=== PATIENT | male | born 1960 | race Caucasian/White ===

== ENCOUNTER 2016-07-29 07:45 | Outpatient (CLI) | payer OTHER | END 2016-07-29 07:46 | disposition home or self-care (01) | DX: Z00.00 Encounter for general adult medical examination without abnormal findings (principal); N40.0 Benign prostatic hyperplasia without lower urinary tract symptoms; F52.21 Male erectile disorder ==

== ENCOUNTER 2016-08-14 09:55 | Outpatient (CLI) | payer OTHER | END 2016-08-14 09:56 | disposition home or self-care (01) | DX: E87.6 Hypokalemia (principal) ==

== ENCOUNTER 2016-09-08 07:49 | Day surgery (SDC) | payer OTHER ==
[2016-09-08] MEDS ORDERED: LACTATED RINGERS 1,000 ML IV ONE (08:12)
[2016-09-08] MEDS ORDERED: fentaNYL 250 MCG/5 ML VIAL IVP ONE (09:32)
[2016-09-08] MEDS ORDERED: MIDAZOLAM 2 MG/2 ML VIAL IVP ONE (09:32)
== END 2016-09-08 07:50 | disposition home or self-care (01) ==
PROC: 0DJD8ZZ Inspection of Lower Intestinal Tract, Via Natural or Artificial Opening Endoscopic (ICD-10-PCS; principal; 2016-09-08 09:15)
DX: Z12.11 Encounter for screening for malignant neoplasm of colon (principal); K64.8 Other hemorrhoids; I10 Essential (primary) hypertension; Z82.49 Family history of ischemic heart disease and other diseases of the circulatory system
CPT/HCPCS: 45378; J3010; J7120

== ENCOUNTER 2017-06-02 09:52 | Emergency (ER) | payer OTHER ==
[2017-06-02 09:59] VITALS: BP 138/94
== END 2017-06-02 11:55 | disposition left against medical advice (07) ==
LOC: ED 09:52
DX: Z53.21 Procedure and treatment not carried out due to patient leaving prior to being seen by health care provider (principal)
CPT/HCPCS: 99281

== ENCOUNTER 2017-06-25 14:38 | Outpatient (CLI) | payer OTHER ==
--- NOTE | 2017-06-28 16:05 | Ultrasound Report ---
ABIs: 06/25/2017 CLINICAL INDICATION: Hypertension. TECHNIQUE: Real-time sonographic vascular imaging was performed by the judicial registrar through the bilateral lower extremities utilizing both color-flow and Doppler flow analysis. Multiple manufacturers service representative static images were saved for review. RIGHT SIDE SITE PSV WAVEFORM STEN SE -- -- -- MAO -- -- -- MARIE -- -- -- ANDRY -- -- -- EIA -- -- -- IMPREGNATOR HELPER -- -- -- PSFA -- -- -- MSFA -- -- -- DSFA -- -- -- PFA -- -- -- POP -- -- -- ADRY -- -- -- PEOPLESOFT 82 triphasic -- PER -- -- -- DPA 114 triphasic -- LEFT SIDE SITE PSV WAVEFORM STEN ANDRY -- -- -- EIA -- -- -- IMPREGNATOR HELPER -- -- -- PSFA -- -- -- MSFA -- -- -- DSFA -- -- -- PFA -- -- -- POP -- -- -- ADRY -- -- -- PEOPLESOFT 69 triphasic -- PER -- -- -- DPA 105 triphasic -- TECHNIQUE: Real-time scanning was performed. SYSTOLIC PRESSURES RIGHT LEFT BRACHIAL ARTERY 131/77 134/79 POSTERIOR TIBIAL ARTERY 161/81 165/79 ANTERIOR TIBIAL ARTERY -- -- PERONEAL ARTERY -- -- ANKLE/ARM INDEX 1.20 1.23 ABIs are normal, measuring 1.20 on the right and 1.23 on the left. IMPRESSION: NORMAL ABIs. [facility]ITALFranklin
== END 2017-06-25 14:39 | disposition home or self-care (01) ==
LOC: DI 14:38
PROVIDERS: ATTEND Physician Assistant Medical
DX: R03.0 Elevated blood-pressure reading, without diagnosis of hypertension (principal)
CPT/HCPCS: 93922

== ENCOUNTER 2017-08-10 08:14 | Outpatient (CLI) | payer OTHER ==
[2017-08-10 13:09] LABS: CREATININE,URINE 251.6 mg/dL; PROTEIN/CREATININE RATIO,URINE 0.1 (<=0.2)
[2017-08-10 13:26] LABS: HGB - HEMOGLOBIN 14.1 g/dL (14.0-18.0); MEAN CORPUSCULAR HEMOGLOBIN 29.8 pg (27.0-31.0); MEAN CORPUSCULAR HGB CONC 32.9 g/dL (32.0-36.0); MEAN CORPUSCULAR VOLUME 90.6 fL (80.0-94.0); MEAN PLATELET VOLUME 8.1 fL (7.4-11.4); RED BLOOD COUNT 4.72 10^6/uL (4.70-6.10); RED CELL DISTRIBUTION WIDTH 14.2 % (12.0-15.0); WHITE BLOOD COUNT 6.8 x10^3/uL (4.8-10.8)
== END 2017-08-10 08:15 | disposition home or self-care (01) ==
LOC: LAB.WCP 08:14
PROVIDERS: ATTEND Internal Medicine Nephrology
DX: D70.9 Neutropenia, unspecified (principal); R80.9 Proteinuria, unspecified
CPT/HCPCS: 36415; 82570; 84156

== ENCOUNTER 2017-08-25 21:33 | Emergency (ER) | payer OTHER ==
[2017-08-25 21:55] LABS: BASOPHILS # (AUTO) 0.1 10^3/uL (0.0-0.1); EOSINOPHILS # (AUTO) 0.2 10^3/uL (0.0-0.7); EOSINOPHILS % (AUTO) 1.9 %; HGB - HEMOGLOBIN 13.6 g/dL (14.0-18.0); LYMPHOCYTES # (AUTO) 3.2 10^3/uL (1.5-3.5); LYMPHOCYTES % (AUTO) 38.3 %; MEAN CORPUSCULAR HEMOGLOBIN 30.3 pg (27.0-31.0); MEAN CORPUSCULAR HGB CONC 34.3 g/dL (32.0-36.0); MEAN CORPUSCULAR VOLUME 88.4 fL (80.0-94.0); MEAN PLATELET VOLUME 7.7 fL (7.4-11.4); MONOCYTES # (AUTO) 0.6 10^3/uL (0.0-1.0); MONOCYTES % (AUTO) 7.3 %; NEUTROPHILS # (AUTO) 4.3 10^3/uL (1.5-6.6); NEUTROPHILS % (AUTO) 51.5 %; PLT - PLATELET COUNT 232 10^3/uL (130-450); RED BLOOD COUNT 4.48 10^6/uL (4.70-6.10); RED CELL DISTRIBUTION WIDTH 13.8 % (12.0-15.0); WHITE BLOOD COUNT 8.3 x10^3/uL (4.8-10.8)
[2017-08-25 22:05] LABS: ALBUMIN 4.3 g/dL (3.2-5.5); ALBUMIN/GLOBULIN RATIO 1.4 (1.0-2.2); BILIRUBIN,TOTAL 0.4 mg/dL (0.2-1.0); CALCIUM 9.3 mg/dL (8.5-10.3); CREATININE 1.2 mg/dL (0.6-1.2); TOTAL PROTEIN 7.4 g/dL (6.7-8.2)
[2017-08-25] MEDS ORDERED: hydrALAZINE INJ 20 MG/ML VIAL IVP STA (22:15)
--- NOTE | 2017-08-25 23:04 | XRAY Report ---
EXAM: CHEST RADIOGRAPHY EXAM DATE: 08/25/2017 10:51 PM. CLINICAL HISTORY: Chest pain. COMPARISON: 01/17/2016. TECHNIQUE: 2 views. FINDINGS: Lungs/Pleura: There is small streaky left lateral lung base opacity noted. No significant consolidati on, effusion, or definite pneumothorax. Mediastinum: Heart and mediastinal contours are unremarkable. Other: Moderate degenerative change of the shoulder bilaterally. IMPRESSION: Minimal left lateral lung base atelectasis. [facility] Referring Provider Line: [phone] SITE ID: [id number]
[2017-08-25] MEDS ORDERED: hydroCHLOROthiazide 25 MG TABLET PO STA (23:12)
[2017-08-25] MEDS ORDERED: LOSARTAN 50 MG TABLET PO STA (23:12)
--- NOTE | 2017-08-25 23:15 | ED Physician Documentation ---
PD HPI CHEST PAIN - Stated complaint Stated Complaint: CP - Chief complaint Chief Complaint: Cardiac - History obtained from History obtained from: Patient - History of Present Illness Timing - onset: Yesterday Timing - onset during: Light activity Timing - details: Intermittant Quality: Pressure Location: Substernal, Left chest, Right chest Improved by: Rest Associated symptoms: No: Shortness of air, Diaphoresis, Nausea, Vomiting, Feeling faint / dizzy, General Weakness Similar symptoms before: Work up / diagnostics Recently seen: Not recently seen - Additional information Additional information: Patient is a 56 year old male with a history of htn and depression who is presenting to the emergency department for intermittent chest discomfort. Patient states that over the last couple of days he has had intermittent chest pain. Patient states that he does not realize it during the day, but when he comes home at night he will notice it. Patient is under a lot of stress lately. He recently has gone through a divorce and he has a friend in a hospital 2 hours away and has been driving back and forth visiting. Patient states that he is supposed to be on blood pressure medication but he hasn't been taking it recently. Patient reports that within the last year he had a stress test and an echo and they were both ok as far as he knows. Review of Systems Constitutional: denies: Fever, Chills Eyes: reports: Reviewed and negative Ears: reports: Reviewed and negative Nose: reports: Reviewed and negative Throat: reports: Reviewed and negative Cardiac: reports: Chest pain / pressure. denies: Palpitations, Pedal edema, Calf pain Respiratory: denies: Dyspnea, Cough, Hemoptysis, Wheezing GI: denies: Nausea, Vomiting : reports: Reviewed and negative Skin: reports: Reviewed and negative Musculoskeletal: denies: Extremity pain, Extremity swelling Neurologic: denies: Near syncope, Syncope Immunocompromised: denies: Immunocompromised PD PAST MEDICAL HISTORY - Past Medical History Cardiovascular: Hypertension, High cholesterol Respiratory: None Endocrine/Autoimmune: None GI: None : None HEENT: None Psych: None, Other Musculoskeletal: None Derm: None - Past Surgical History Past Surgical History: Yes General: Other - Present Medications Home Medications: Ambulatory Orders Medication Instructions Recorded Confirmed Atorvastatin Calcium [Lipitor] 10 mg PO DAILY 08/08/15 06/02/17 DULoxetine [Cymbalta] 60 mg PO DAILY 01/04/16 06/02/17 Hydrochlorothiazide 12.5 mg PO DAILY 09/08/16 06/02/17 Losartan [Cozaar] 100 mg PO DAILY 09/08/16 06/02/17 - Allergies Allergies/Adverse Reactions: Allergies Allergy/AdvReac Type Severity Reaction Status Date / Time No Known Drug Allergies Allergy Verified 08/25/17 21:40 - Social History Does the pt smoke?: No Smoking Status: Never smoker Does the pt drink ETOH?: Yes Does the pt have substance abuse?: No - Immunizations Immunizations are current?: Yes PD ED PE NORMAL - Vitals Vital signs reviewed: Yes - General General: Alert and oriented X 3, No acute distress - HEENT HEENT: Atraumatic, PERRL - Neck Neck: Supple, no meningeal sign, No JVD - Cardiac Cardiac: RRR, No murmur, No rub - Respiratory Respiratory: No respiratory distress, Clear bilaterally - Abdomen Abdomen: Soft, Non tender, Non distended - Derm Derm: Normal color, Warm and dry, No rash - Extremities Extremities: No deformity, Normal ROM s pain, No calf tenderness / cord - Neuro Neuro: Alert and oriented X 3, No motor deficit, No sensory deficit, Normal speech Eye Opening: Spontaneous Motor: Obeys Commands Verbal: Oriented GCS Score: 15 - Psych Psych: Normal mood Results - Vitals Vitals: Vital Signs - 24 hr 08/25/17 08/25/17 08/25/17 21:35 22:21 22:28 Temperature 36.8 C Heart Rate 93 78 85 Respiratory 16 17 18 Rate Blood Pressure 193/101 H 188/177 H 191/109 H O2 Saturation 96 95 95 08/25/17 08/25/17 08/25/17 22:39 22:44 22:56 Temperature Heart Rate 83 81 78 Respiratory 17 18 16 Rate Blood Pressure 175/106 H 179/106 H 183/97 H O2 Saturation 95 98 95 08/25/17 08/25/17 08/26/17 23:29 23:34 00:12 Temperature Heart Rate 83 80 73 Respiratory 18 16 16 Rate Blood Pressure 175/95 H 187/102 H 183/109 H O2 Saturation 96 95 99 08/26/17 00:23 Temperature Heart Rate Respiratory Rate Blood Pressure 172/97 H O2 Saturation Oxygen O2 Source Room air - EKG (time done) 2141 Rate: Rate (enter#) (88) Rhythm: NSR [place]: Normal Intervals: Normal CT QRS: Normal Ischemia: Normal ST segments - Labs Labs: Laboratory Tests 08/25/17 08/25/17 08/25/17 21:45 21:45 21:45 WBC 8.3 RBC 4.48 L Hgb 13.6 L Hct 39.6 L MCV 88.4 MCH 30.3 MCHC 34.3 RDW 13.8 Plt Count 232 MPV 7.7 Neut # 4.3 Lymph # 3.2 Woods # 0.6 Eos # 0.2 Baso # 0.1 Absolute Nucleated RBC 0.01 Nucleated RBC % 0.1 Sodium 138 Potassium 3.3 L Chloride 101 Carbon Dioxide 25 Anion Gap 12.0 BUN 16 Creatinine 1.2 Estimated GFR (MDRD) 63 L Glucose 97 Calcium 9.3 Total Bilirubin 0.4 AST 27 ALT 30 Alkaline Phosphatase 43 Troponin I 0.06 B-Natriuretic Peptide Total Protein 7.4 Albumin 4.3 Globulin 3.1 Albumin/Globulin Ratio 1.4 Lipase 26 08/25/17 08/25/17 21:45 23:25 WBC RBC Hgb Hct MCV MCH MCHC RDW Plt Count MPV Neut # Lymph # Woods # Eos # Baso # Absolute Nucleated RBC Nucleated RBC % Sodium Potassium Chloride Carbon Dioxide Anion Gap BUN Creatinine Estimated GFR (MDRD) Glucose Calcium Total Bilirubin AST ALT Alkaline Phosphatase Troponin I 0.08 B-Natriuretic Peptide 21 Total Protein Albumin Globulin Albumin/Globulin Ratio Lipase - Rads (name of study) chest x-ray Radiology: Final report received (mild atelectasis left base) PD MEDICAL DECISION MAKING - ED course Complexity details: reviewed old records, reviewed results, re-evaluated patient , considered differential, d/w patient ED course: Patient was seen and examined at bedside. patient was well appearing and in no acute distress. ekg was performed and within normal limits. labs were drawn. chest x-ray was performed and within normal limits. Patient was treated with hydralizine 10mg IV. Patient was also treated with his home medications. patient's diagnostics, including repeat troponin were within normal limits. patient states that he had prescriptions at his pharmacy so no other prescriptions were necessary. patient had a HEART score of 3. Patient required no further inpatient work up and was stable for discharge with outpatient follow up. Departure - Departure Disposition: Home, Self Care Clinical Impression: Chest pain Condition: Good Instructions: ED Heart Disease Risk Factors Follow-Up: Terra Morse PA-C [Primary Care Provider] - Tomorrow Comments: Your diagnostics today were within normal limits aside from your blood pressure which remained elevated. It is important that you are compliant with your medications as the prolonged hypertension can have lasting damage. If your blood pressures remain elevated while you are taking all of your medicaitons you will need to work with your pmd on a medication regiment. You may return to the emergency department at any time for new worsening or uncontrollable sympotms. Discharge Date/Time: 08/26/17 00:25
[2017-08-26 00:24] VITALS: BP 172/97
== END 2017-08-26 00:25 | disposition home or self-care (01) ==
LOC: ED 21:33
DX: R07.9 Chest pain, unspecified (principal); I10 Essential (primary) hypertension; E78.00 Pure hypercholesterolemia, unspecified
CPT/HCPCS: 36415; 71046; 80053; 83690; 83880; 84484; 85025; 93005; 96374; 99284; A9270

== ENCOUNTER 2017-09-09 08:42 | Outpatient (CLI) | payer OTHER ==
[2017-09-09] MEDS ORDERED: NITROGLYCERIN SL 0.4 MG TABLET SL ONE (12:00)
[2017-09-09 18:14] VITALS: BP 176/98
--- NOTE | 2017-09-09 18:26 | CARDIAC PROCEDURE NOTE ---
DATE OF SERVICE: 09/09/2017 Physician: LENORA Malcolm PRIMARY CARE PHYSICIAN: Terra Morse PA-C PROCEDURE: Myocardial perfusion treadmill. PROCEDURE REASON: A 08/25/2017 ER visit for chest pain rule out. Cardiac risk factors include age, family history, hypertension, hyperlipidemia, and impaired fasting glucose. PREVIOUS CARDIAC PROCEDURES: ETT. MEDICATIONS: The patient took losartan and Cardizem this morning but not hydralazine, which is listed as p.r.n. for systolic greater than 160. CLINICAL HISTORY: A 56-year-old male without known coronary artery disease. INITIAL RESTING VITAL SIGNS: Blood pressure 176/98, heart rate 82, height 72 inches, weight 240 pounds. PROCEDURE AND FINDINGS: Patient identity and date verified. Consent signed. The patient performed treadmill exercise using a [place] protocol, completing 9 minutes, 46 seconds and an estimated workload of 10.1 metabolic equivalents. His predicted exercise time was 9:00 minutes to 9 minutes 15 seconds. At peak exercise, Cardiolite radioactive tracer was injected intravenously and the patient exercised at least 60 seconds longer. Maximal blood pressure was 210/84 with a heart rate of 162 beats per minute or 97% of maximum predicted heart rate for age. The blood pressure response to exercise was hypertensive, but as expected. The patient stopped because he was getting more hypertensive and he had achieved the needed parameters. He rated his maximal Macie scale for rating perceived exertion as 16 /20. The resting ECG demonstrated normal sinus rhythm with repolarization abnormality. Maximum ST-segment depression was less than 0.5 mm and upsloping. The patient (post- exercise) reported 3/10 chest pain in the lower sternum starting about midway through the procedure and persisting into recovery. He was given a nitroglycerin 0.4 mg SL, and his chest pain resolved over 5-6 minutes. FINAL IMPRESSIONS 1. High pretest probability. 2. Equivocal stress electrocardiogram for ischemia by electrocardiographic. There was abnormal ST-segment elevation in recovery with high peaked T-waves resolving over [address]-segment elevation of V2 and [address] Alarcon. 4. Positive stress test clinically for typical symptoms of angina. 5. No ectopy nor arrhythmia was noted. 6. Await findings of myocardial perfusion scan. 7. The scan was read STAT and findings reported to PCP. cc: Dr. Shoaib Morales, TAYLOR Jones, TD: 09/09/2017 18:25 CHARO
--- NOTE | 2017-09-09 18:43 | Nuclear Medicine Report ---
EXAM: SINGLE-ISOTOPE PHARMACOLOGICAL STRESS TEST WITH REGADENOSON. SINGLE-ISOTOPE AND TWO-DAY REST/STRESS M YOCARDIAL PERFUSION SCANS WITH TOMOGRAPHIC IMAGING, QUANTITATIVE ANALYSIS, WALL MOTION ANALYSIS AND C ALCULATION OF EJECTION FRACTION. EXAM DATE: 09/09/2017 05:01 PM. CLINICAL HISTORY: Chest pain. COMPARISON: None. TECHNIQUE: A pharmacological stress was performed with the infusion of 0.4 mg regadenoson per protocol. Accordin g to protocol, 10.1 mCi of Tc-99m sestamibi was injected for stress myocardial perfusion scan. Motion correction was applied when appropriate. The following day after the intravenous administration of 41.6 mCi of Tc-99m sestamibi, a rest myocar dial perfusion scan was done with tomography. Motion correction was applied when appropriate. Gated tomographic images were obtained for wall motion analysis and computation of left ventricular e jection fraction. FINDINGS: There is a moderate-sized, severe, partially reversible fixed perfusion defect involving the apical s egment on stress images. The findings are suggestive of a prior infarct with residual ischemic myocar dium. There are no other fixed or reversible perfusion defects. Wall motion analysis demonstrates mild generalized hypokinesia. There is mild enlargement of the cardiac chamber visible on both rest and stress images. The left ventricular ejection fraction is 47%. IMPRESSION: 1. Prior apical infarct with residual ischemic tissue. 2. Left ventricular ejection fraction of 47%. 3. Mild generalized hypokinesia. 4. Mild ventricular enlargement visible on both rest and stress images. [facility] The above findings were discussed with Dr. Joy by Dr. Roland Zelaya at 18:17 hrs on 09/09/17 . Referring Provider Line: [phone] SITE ID: [id number]
== END 2017-09-09 08:43 | disposition home or self-care (01) ==
LOC: DI 08:42
PROVIDERS: ATTEND Physician Assistant Medical
DX: R07.9 Chest pain, unspecified (principal); I25.2 Old myocardial infarction; I51.7 Cardiomegaly; I10 Essential (primary) hypertension; E78.5 Hyperlipidemia, unspecified; R73.01 Impaired fasting glucose; R94.31 Abnormal electrocardiogram [ECG] [EKG]; I20.9 Angina pectoris, unspecified
CPT/HCPCS: 78452; 93017; A9270; A9500

== ENCOUNTER 2017-11-19 08:00 | Outpatient (CLI) | payer OTHER ==
[2017-11-19 13:27] LABS: ALBUMIN 4.2 g/dL (3.2-5.5); ALBUMIN/GLOBULIN RATIO 1.5 (1.0-2.2); ALKALINE PHOSPHATASE 50 IU/L (42-121); ALT ALANINE AMINOTRANSFERASE 36 IU/L (10-60); AST ASPARTATE AMINOTRANSFERASE 33 IU/L (10-42); BILIRUBIN,TOTAL 0.5 mg/dL (0.2-1.0); BUN - BLOOD UREA NITROGEN 23 mg/dL (6-20); CALCIUM 9.3 mg/dL (8.5-10.3); CARBON DIOXIDE - CO2 28 mmol/L (21-32); CHLORIDE 101 mmol/L (101-111); CHOL/HDL RATIO 4.3 (<5.0); CHOLESTEROL 147 mg/dL; CREATININE 1.5 mg/dL (0.6-1.2); GFR - MDRD 49 (>89); GLUCOSE 128 mg/dL (70-100); HDL CHOLESTEROL 34 mg/dL; LDL CHOLESTEROL,CALCULATED 82 mg/dL; LDL/HDL RATIO 2.4 (<3.6); SODIUM 137 mmol/L (135-145); VLDL CHOLESTEROL 31 mg/dL
== END 2017-11-19 08:01 | disposition home or self-care (01) ==
LOC: LAB.WCP 08:00
PROVIDERS: ATTEND Internal Medicine Cardiovascular Disease
DX: I25.10 Atherosclerotic heart disease of native coronary artery without angina pectoris (principal); I25.5 Ischemic cardiomyopathy; Z95.5 Presence of coronary angioplasty implant and graft
CPT/HCPCS: 36415; 80053; 80061; 83721

== ENCOUNTER 2017-12-26 19:52 | Emergency (ER) | payer OTHER ==
--- NOTE | 2017-12-26 21:14 | ED Physician Documentation ---
PD HPI HEENT - Stated complaint Stated Complaint: BLOODY NOSE - Chief complaint Chief Complaint: Heent - History obtained from History obtained from: Patient - History of Present Illness Timing - onset: Today (recurred today while sitting at rest, and had steady drip of blood left nostril anteriorly, then when he pinched nose, it then went down back of throat.), Last night (for an hour or so) Timing - duration: Hours Timing - details: Abrupt onset Location: Nose Associated symptoms: Other (not feeling lightheaded. Had not had an URI symptoms , no local injury, no noseblowing.). No: Fever, Congestion Similar symptoms before: Has not had sx before Recently seen: Not recently seen Review of Systems Constitutional: denies: Fever, Chills Nose: reports: Epistaxis. denies: Rhinorrhea / runny nose, Congestion, Sinus pressure / pain Throat: denies: Sore throat Respiratory: denies: Cough Endocrine: reports: Easy bruising / bleeding. denies: Weight loss Immunocompromised: denies: Immunocompromised PD PAST MEDICAL HISTORY - Past Medical History Past Medical History: Yes Cardiovascular: Hypertension, High cholesterol, Coronary artery disease (with stent placed 7 months ago and doing well without anginal symptoms. ) Respiratory: None Endocrine/Autoimmune: None GI: None : None HEENT: None Psych: None, Other Musculoskeletal: None Derm: None - Past Surgical History Past Surgical History: Yes General: Other Cardiovascular: Coronary stent - Present Medications Home Medications: Ambulatory Orders Medication Instructions Recorded Confirmed Amlodipine Besylate [Norvasc] 2.5 mg PO DAILY 12/26/17 Aspirin [Aspirin EC] 81 mg PO DAILY 12/26/17 Atorvastatin Calcium 80 mg PO DAILY 12/26/17 Duloxetine HCl 60 mg PO DAILY 12/26/17 Losartan [Cozaar] 100 mg PO DAILY 12/26/17 Metoprolol Succinate 100 mg PO DAILY 12/26/17 Prasugrel HCl [Effient] 10 mg PO DAILY 12/26/17 - Allergies Allergies/Adverse Reactions: Allergies Allergy/AdvReac Type Severity Reaction Status Date / Time No Known Drug Allergies Allergy Verified 12/26/17 20:13 - Social History Does the pt smoke?: No Smoking Status: Never smoker Does the pt drink ETOH?: Yes Does the pt have substance abuse?: No - Immunizations Immunizations are current?: Yes PD ED PE NORMAL - Vitals Vital signs reviewed: Yes - General General: Alert and oriented X 3, No acute distress, Well developed/nourished - HEENT HEENT: Ears normal, Pharynx benign, Other (left nostril with clamp on but some bleeding mild to left posterior. Cotton balls with Afrin and TXA placed in left nostril and clamped again for 10 minutes, with stopping of the bleeding.) Results - Vitals Vitals: Vital Signs - 24 hr 12/26/17 12/26/17 20:00 21:41 Temperature 36.0 C L Heart Rate 88 78 Respiratory 16 16 Rate Blood Pressure 152/87 H 143/100 H O2 Saturation 97 97 Oxygen O2 Source Room air Procedures - Epistaxis Site: Left, Anterior Preparation: Clots removed, Afrin, Clamp / pressure applied, Other (TXA 5 ml along with the Afrin on the cottonballs for initial stopping of bleeding.) Treatment: Silver Nitrate, Packing inserted Other: Observed - no bleeding, Pt tolerated well, O2 sat WNL PD MEDICAL DECISION MAKING - ED course Complexity details: re-evaluated patient (no bleeding after meds with cottonballs. Prior bleeding vessel identified at visible turbinate. Medial wall appears okay. No further bleeding. ), considered differential, d/w patient Departure - Departure Disposition: 01 Home, Self Care Clinical Impression: Anterior epistaxis Condition: Stable Record reviewed to determine appropriate education?: Yes Instructions: Nosebleed Follow-Up: Terra Morse PA-C [Primary Care Provider] - Comments: Leave the packing in the nostril until tomorrow late afternoon or evening if he can. Remove it gently at that time. Alternatively he could return to the ER follow-up with your primary care for her to be rechecked in a couple of days. If it does have some bleeding recur, keep the packing in and saturate with some Afrin spray and pinch the nose again for 10 or 15 minutes and see if it stops. Return to the ER if it bleeds more significantly again. Continue other usual medicines. Discharge Date/Time: 12/26/17 22:12
[2017-12-26] MEDS ORDERED: OXYMETAZOLINE NASAL SPRAY NAS STA (21:15)
[2017-12-26 21:42] VITALS: BP 143/100
== END 2017-12-26 22:12 | disposition home or self-care (01) ==
LOC: ED 19:52
DX: R04.0 Epistaxis (principal); I10 Essential (primary) hypertension; E78.00 Pure hypercholesterolemia, unspecified; I25.10 Atherosclerotic heart disease of native coronary artery without angina pectoris; Z79.82 Long term (current) use of aspirin
CPT/HCPCS: 30901; 99283; A9270

== ENCOUNTER 2017-12-27 08:42 | Emergency (ER) | payer OTHER ==
[2017-12-27] MEDS ORDERED: TRANEXAMIC ACID 1,000 MG/10 ML VIAL NAS STA (08:56)
--- NOTE | 2017-12-27 09:04 | ED Physician Documentation ---
History of Present Illness - Stated complaint Stated Complaint: NOSE BLEED - Chief complaint Chief Complaint: Heent - History obtained from History obtained from: Patient - History of Present Illness Timing: Last night Pain level max: 0 Pain level now: 0 - Additonal information Additional information: Patient is a 57-year-old male who presents to the emergency department with a nosebleed from the left nare. This started last night and continued again this morning. He removed the packing that was placed last night and a large clot was removed and the bleeding recurred. Patient is on Effient. Nothing makes the bleeding worse. Nothing seems to make it better. He did try to hold pressure this morning. Review of Systems Constitutional: denies: Fever, Chills GI: denies: Vomiting PD PAST MEDICAL HISTORY - Past Medical History Cardiovascular: Hypertension, High cholesterol, Coronary artery disease Respiratory: None Endocrine/Autoimmune: Type 2 diabetes GI: None : None HEENT: None Psych: None, Other Musculoskeletal: None Derm: None - Past Surgical History Past Surgical History: Yes General: Other Cardiovascular: Coronary stent - Present Medications Home Medications: Ambulatory Orders Medication Instructions Recorded Confirmed Amlodipine Besylate [Norvasc] 2.5 mg PO DAILY 12/26/17 Aspirin [Aspirin EC] 81 mg PO DAILY 12/26/17 Atorvastatin Calcium 80 mg PO DAILY 12/26/17 Duloxetine HCl 60 mg PO DAILY 12/26/17 Losartan [Cozaar] 100 mg PO DAILY 12/26/17 Metoprolol Succinate 100 mg PO DAILY 12/26/17 Prasugrel HCl [Effient] 10 mg PO DAILY 12/26/17 - Allergies Allergies/Adverse Reactions: Allergies Allergy/AdvReac Type Severity Reaction Status Date / Time No Known Drug Allergies Allergy Verified 12/26/17 20:13 - Social History Does the pt smoke?: No Smoking Status: Never smoker Does the pt drink ETOH?: Yes ETOH Use: Beer, Liquor Does the pt have substance abuse?: No - Immunizations Immunizations are current?: Yes - POLST Patient has POLST: No PD ED PE NORMAL - Vitals Vital signs reviewed: Yes - General General: Alert and oriented X 3, No acute distress - HEENT HEENT: Moist mucous membranes, Other (slight bleeding from the L nare. Unable to visualize the site of bleeding. ) - Neck Neck: Supple, no meningeal sign - Derm Derm: Warm and dry - Neuro Neuro: Alert and oriented X 3 Results - Vitals Vitals: Vital Signs - 24 hr 12/27/17 12/27/17 12/27/17 08:45 08:58 10:16 Temperature 36.6 C 36.6 C Heart Rate 80 80 87 Respiratory 14 12 14 Rate Blood Pressure 161/105 H 161/105 H 158/101 H O2 Saturation 100 98 99 Oxygen O2 Source Room air - Labs Labs: Laboratory Tests 12/27/17 12/27/17 12/27/17 10:25 10:25 10:25 WBC 8.8 RBC 4.45 L Hgb 13.1 L Hct 38.8 L MCV 87.2 MCH 29.4 MCHC 33.7 RDW 14.4 Plt Count 216 MPV 7.8 Neut # (Auto) 6.4 Lymph # (Auto) 1.7 [place] # (Auto) 0.6 Eos # (Auto) 0.1 Baso # (Auto) 0.1 Absolute Nucleated RBC 0.00 Nucleated RBC % 0.0 PT 12.3 INR 1.1 APTT 30.3 Sodium 135 Potassium 3.6 Chloride 102 Carbon Dioxide 27 Anion Gap 6.0 BUN 27 H Creatinine 1.1 Estimated GFR (MDRD) 69 L Glucose 118 H Calcium 9.1 Total Bilirubin 0.8 AST 26 ALT 36 Alkaline Phosphatase 47 Total Protein 7.2 Albumin 4.2 Globulin 3.0 Albumin/Globulin Ratio 1.4 Lipase 31 Procedures - Epistaxis Site: Left, Cannot determine Preparation: Clots removed, Clamp / pressure applied, Other (txa) Treatment: Anterior rhinorocket Other: Observed - no bleeding, Pt tolerated well, O2 sat WNL PD MEDICAL DECISION MAKING - ED course Complexity details: reviewed old records (prior ED visit), reviewed results, re- evaluated patient, considered differential, d/w patient ED course: Patient is a 57-year-old male on effient with recurrent anterior epistaxis. Did not see any evidence of posterior bleeding. Anterior nasal packing was placed with a Rhino Rocket. Tolerated well. TXA was first instilled. No recurrent bleeding in the emergency department. No acute laboratory abnormalities. We will have him return tomorrow to remove the packing. Patient counseled regarding signs and symptoms for which I believe and urgent re -evaluation would be necessary. Patient with good understanding of and agreement to plan and is comfortable going home at this time This document was made in part using voice recognition software. While efforts are made to proofread this document, sound alike and grammatical errors may occur. Departure - Departure Disposition: 01 Home, Self Care Clinical Impression: Anterior epistaxis Condition: Good Instructions: ED Nosebleed Follow-Up: return,here in 24 hours for packing removal [Other] Comments: Return here in 24 hours for removal of the nasal packing. Return sooner if you worsen. Discharge Date/Time: 12/27/17 10:45
[2017-12-27] MEDS ORDERED: LIDOCAINE 1% 2 ML VIAL ONE (09:29)
[2017-12-27 10:18] VITALS: BP 158/101
[2017-12-27 10:37] LABS: BASOPHILS # (AUTO) 0.1 10^3/uL (0.0-0.1); BASOPHILS % (AUTO) 0.9 %; EOSINOPHILS # (AUTO) 0.1 10^3/uL (0.0-0.7); EOSINOPHILS % (AUTO) 1.5 %; HGB - HEMOGLOBIN 13.1 g/dL (14.0-18.0); LYMPHOCYTES # (AUTO) 1.7 10^3/uL (1.5-3.5); LYMPHOCYTES % (AUTO) 18.8 %; MEAN CORPUSCULAR HEMOGLOBIN 29.4 pg (27.0-31.0); MEAN CORPUSCULAR HGB CONC 33.7 g/dL (32.0-36.0); MEAN CORPUSCULAR VOLUME 87.2 fL (80.0-94.0); MEAN PLATELET VOLUME 7.8 fL (7.4-11.4); MONOCYTES # (AUTO) 0.6 10^3/uL (0.0-1.0); MONOCYTES % (AUTO) 6.6 %; NEUTROPHILS # (AUTO) 6.4 10^3/uL (1.5-6.6); NEUTROPHILS % (AUTO) 72.2 %; PLT - PLATELET COUNT 216 10^3/uL (130-450); RED BLOOD COUNT 4.45 10^6/uL (4.70-6.10); RED CELL DISTRIBUTION WIDTH 14.4 % (12.0-15.0); WHITE BLOOD COUNT 8.8 x10^3/uL (4.8-10.8)
[2017-12-27 10:44] LABS: INR 1.1 (0.8-1.2); PT - PROTHROMBIN TIME 12.3 secs (9.9-12.6)
[2017-12-27 10:48] LABS: ALBUMIN 4.2 g/dL (3.2-5.5); ALBUMIN/GLOBULIN RATIO 1.4 (1.0-2.2); BILIRUBIN,TOTAL 0.8 mg/dL (0.2-1.0); CALCIUM 9.1 mg/dL (8.5-10.3); CREATININE 1.1 mg/dL (0.6-1.2); TOTAL PROTEIN 7.2 g/dL (6.7-8.2)
[2017-12-27] MEDS ORDERED: LIDOCAINE 1% 2 ML VIAL SUBQ STA (11:52)
== END 2017-12-27 10:45 | disposition home or self-care (01) ==
LOC: ED 08:42
DX: R04.0 Epistaxis (principal); I10 Essential (primary) hypertension; E11.9 Type 2 diabetes mellitus without complications; Z79.82 Long term (current) use of aspirin; Z79.02 Long term (current) use of antithrombotics/antiplatelets; Z95.5 Presence of coronary angioplasty implant and graft
CPT/HCPCS: 36415; 80053; 83690; 85025; 85610; 85730; 99283

== ENCOUNTER 2017-12-27 17:13 | Emergency (ER) | payer OTHER ==
[2017-12-27 17:43] VITALS: BP 151/102
--- NOTE | 2017-12-27 17:46 | ED Physician Documentation ---
PD HPI HEENT FB - Chief complaint Chief Complaint: Heent - History obtained from History obtained from: Patient - History of Present Illness Timing - onset: Other (57-year-old gentleman on effient was seen here for left- sided epistaxis last night and cauterized and had recurrent bleeding today and a nasal packing was placed with a Rhino Rocket which she is not tolerating because of the pain and wants it removed.) Review of Systems Constitutional: denies: Fever, Chills Ears: denies: Ear pain Nose: denies: Rhinorrhea / runny nose, Congestion PD PAST MEDICAL HISTORY - Past Medical History Cardiovascular: Hypertension, High cholesterol, Coronary artery disease Respiratory: None Endocrine/Autoimmune: Type 2 diabetes GI: None : None HEENT: None Psych: None, Other Musculoskeletal: None Derm: None - Past Surgical History Past Surgical History: Yes General: Other Cardiovascular: Coronary stent - Present Medications Home Medications: Ambulatory Orders Medication Instructions Recorded Confirmed Amlodipine Besylate [Norvasc] 2.5 mg PO DAILY 12/26/17 Aspirin [Aspirin EC] 81 mg PO DAILY 12/26/17 Atorvastatin Calcium 80 mg PO DAILY 12/26/17 Duloxetine HCl 60 mg PO DAILY 12/26/17 Losartan [Cozaar] 100 mg PO DAILY 12/26/17 Metoprolol Succinate 100 mg PO DAILY 12/26/17 Prasugrel HCl [Effient] 10 mg PO DAILY 12/26/17 - Allergies Allergies/Adverse Reactions: Allergies Allergy/AdvReac Type Severity Reaction Status Date / Time No Known Drug Allergies Allergy Verified 12/27/17 17:43 - Social History Does the pt smoke?: No Smoking Status: Never smoker Does the pt drink ETOH?: Yes Does the pt have substance abuse?: No - Immunizations Immunizations are current?: Yes - POLST Patient has POLST: No PD ED PE NORMAL - Vitals Vital signs reviewed: Yes - General General: Alert and oriented X 3, No acute distress - HEENT HEENT: Other (There is a left-sided Rhino Rocket in place with no active bleeding) - Neck Neck: Supple, no meningeal sign, No bony TTP - Neuro Neuro: Alert and oriented X 3, Normal speech Results - Vitals Vitals: Vital Signs - 24 hr 12/27/17 17:25 Temperature 36.3 C L Heart Rate 87 Respiratory 18 Rate Blood Pressure 151/102 H O2 Saturation 96 Oxygen O2 Source Room air PD MEDICAL DECISION MAKING - ED course ED course: It seems pretty early to take the nasal packing out so initially I just decreased the balloon pressure to see if he would tolerate the discomfort of it better and he was left to sit for a few minutes, and he still wanted adamantly the packing out and it was discontinued. He did have mild persistent bleeding and he was treated topically with epinephrine and lidocaine and then recauterized and he was observed for a while with no further significant bleeding. Departure - Departure Disposition: 01 Home, Self Care Clinical Impression: Anterior epistaxis Condition: Good Record reviewed to determine appropriate education?: Yes Instructions: Nosebleed Comments: Return for recurrent bleeding. Your blood pressure was elevated today on check into the emergency department. This does not mean that you have hypertension, it is a common phenomenon to come to the emergency department and have elevated blood pressure. I recommend that you see your primary care physician within the week to have it rechecked when you are feeling better.
== END 2017-12-27 18:45 | disposition home or self-care (01) ==
LOC: ED 17:13
DX: R04.0 Epistaxis (principal); I10 Essential (primary) hypertension; I25.10 Atherosclerotic heart disease of native coronary artery without angina pectoris; E11.9 Type 2 diabetes mellitus without complications; Z95.5 Presence of coronary angioplasty implant and graft; Z79.02 Long term (current) use of antithrombotics/antiplatelets; Z79.82 Long term (current) use of aspirin
CPT/HCPCS: 30901; 30903; 36415; 80053; 83690; 85025; 85610; 85730; 99283

== ENCOUNTER 2018-03-09 07:39 | Outpatient (CLI) | payer OTHER ==
[2018-03-09 12:40] LABS: CALCIUM 9.4 mg/dL (8.5-10.3); CREATININE 1.2 mg/dL (0.6-1.2)
== END 2018-03-09 07:40 | disposition home or self-care (01) ==
LOC: LAB.WCP 07:39
PROVIDERS: ATTEND Internal Medicine Cardiovascular Disease
DX: I10 Essential (primary) hypertension (principal)
CPT/HCPCS: 36415; 80048

== ENCOUNTER 2018-08-12 08:15 | Outpatient (CLI) | payer OTHER ==
[2018-08-12 12:13] LABS: BASOPHILS % (AUTO) 0.8 %; EOSINOPHILS # (AUTO) 0.2 10^3/uL (0.0-0.7); EOSINOPHILS % (AUTO) 3.6 %; HGB - HEMOGLOBIN 12.9 g/dL (14.0-18.0); LYMPHOCYTES % (AUTO) 35.3 %; MEAN CORPUSCULAR HGB CONC 34.5 g/dL (32.0-36.0); MEAN CORPUSCULAR VOLUME 87.1 fL (80.0-94.0); MONOCYTES # (AUTO) 0.4 10^3/uL (0.0-1.0); MONOCYTES % (AUTO) 7.3 %; NEUTROPHILS # (AUTO) 2.9 10^3/uL (1.5-6.6); PLT - PLATELET COUNT 230 10^3/uL (130-450); RED BLOOD COUNT 4.29 10^6/uL (4.70-6.10); RED CELL DISTRIBUTION WIDTH 14.5 % (12.0-15.0); WHITE BLOOD COUNT 5.5 x10^3/uL (4.8-10.8)
[2018-08-12 12:44] LABS: ALBUMIN 4.1 g/dL (3.2-5.5); ALBUMIN/GLOBULIN RATIO 1.5 (1.0-2.2); ALKALINE PHOSPHATASE 44 IU/L (42-121); ALT ALANINE AMINOTRANSFERASE 45 IU/L (10-60); AST ASPARTATE AMINOTRANSFERASE 51 IU/L (10-42); BILIRUBIN,TOTAL 0.7 mg/dL (0.2-1.0); BUN - BLOOD UREA NITROGEN 18 mg/dL (6-20); CALCIUM 9.1 mg/dL (8.5-10.3); CARBON DIOXIDE - CO2 26 mmol/L (21-32); CHLORIDE 109 mmol/L (101-111); CHOL/HDL RATIO 2.9 (<5.0); CHOLESTEROL 110 mg/dL; CREATININE 1.2 mg/dL (0.6-1.2); GFR - MDRD 63 (>89); GLUCOSE 122 mg/dL (70-100); HDL CHOLESTEROL 38 mg/dL; LDL CHOLESTEROL,CALCULATED 56 mg/dL; LDL/HDL RATIO 1.5 (<3.6); SODIUM 141 mmol/L (135-145); TOTAL PROTEIN 6.9 g/dL (6.7-8.2); VLDL CHOLESTEROL 16 mg/dL
== END 2018-08-12 23:59 | disposition home or self-care (01) ==
LOC: LAB.WCP 08:15
PROVIDERS: ATTEND Physician Assistant Medical
DX: I25.10 Atherosclerotic heart disease of native coronary artery without angina pectoris (principal); E78.5 Hyperlipidemia, unspecified; I10 Essential (primary) hypertension
CPT/HCPCS: 36415; 80053; 80061; 83721; 85025

== ENCOUNTER 2018-11-17 08:16 | Outpatient (CLI) | payer OTHER ==
[2018-11-17 13:07] LABS: BASOPHILS # (AUTO) 0.1 10^3/uL (0.0-0.1); BASOPHILS % (AUTO) 0.9 %; EOSINOPHILS # (AUTO) 0.3 10^3/uL (0.0-0.7); EOSINOPHILS % (AUTO) 3.5 %; HGB - HEMOGLOBIN 13.8 g/dL (14.0-18.0); LYMPHOCYTES # (AUTO) 2.3 10^3/uL (1.5-3.5); LYMPHOCYTES % (AUTO) 26.3 %; MEAN CORPUSCULAR HEMOGLOBIN 29.2 pg (27.0-31.0); MEAN CORPUSCULAR VOLUME 88.4 fL (80.0-94.0); MEAN PLATELET VOLUME 7.9 fL (7.4-11.4); MONOCYTES # (AUTO) 0.5 10^3/uL (0.0-1.0); NEUTROPHILS # (AUTO) 5.4 10^3/uL (1.5-6.6); NEUTROPHILS % (AUTO) 63.3 %; PLT - PLATELET COUNT 273 10^3/uL (130-450); RED BLOOD COUNT 4.71 10^6/uL (4.70-6.10); RED CELL DISTRIBUTION WIDTH 13.8 % (12.0-15.0); WHITE BLOOD COUNT 8.6 x10^3/uL (4.8-10.8)
[2018-11-17 13:17] LABS: ALBUMIN 4.3 g/dL (3.2-5.5); ALBUMIN/GLOBULIN RATIO 1.4 (1.0-2.2); BILIRUBIN,TOTAL 0.8 mg/dL (0.2-1.0); CALCIUM 9.4 mg/dL (8.5-10.3); TOTAL PROTEIN 7.4 g/dL (6.7-8.2)
[2018-11-17 13:27] LABS: FERRITIN 72.4 ng/mL (23.9-336.2)
[2018-11-17 13:30] LABS: FOLATE 18.2 ng/mL (5.90 - >24.8)
== END 2018-11-17 08:17 | disposition home or self-care (01) ==
LOC: LAB.WCP 08:16
PROVIDERS: ATTEND Physician Assistant Medical
DX: R74.8 Abnormal levels of other serum enzymes (principal); D64.9 Anemia, unspecified; N40.0 Benign prostatic hyperplasia without lower urinary tract symptoms
CPT/HCPCS: 36415; 80053; 82607; 82728; 82746; 83540; 84153; 84466; 85025

== ENCOUNTER 2019-04-07 07:30 | Outpatient (CLI) | payer OTHER ==
[2019-04-07 12:50] LABS: ALBUMIN 4.1 g/dL (3.2-5.5); ALBUMIN/GLOBULIN RATIO 1.4 (1.0-2.2); ALKALINE PHOSPHATASE 45 IU/L (42-121); ALT ALANINE AMINOTRANSFERASE 46 IU/L (10-60); AST ASPARTATE AMINOTRANSFERASE 38 IU/L (10-42); BILIRUBIN,TOTAL 0.7 mg/dL (0.2-1.0); BUN - BLOOD UREA NITROGEN 18 mg/dL (6-20); CALCIUM 9.4 mg/dL (8.5-10.3); CARBON DIOXIDE - CO2 25 mmol/L (21-32); CHLORIDE 106 mmol/L (101-111); CHOL/HDL RATIO 3.5 (<5.0); CHOLESTEROL 150 mg/dL; CREATININE 1.1 mg/dL (0.6-1.2); GFR - MDRD 69 (>89); GLUCOSE 135 mg/dL (70-100); HDL CHOLESTEROL 43 mg/dL; LDL CHOLESTEROL,CALCULATED 80 mg/dL; LDL/HDL RATIO 1.9 (<3.6); SODIUM 141 mmol/L (135-145); VLDL CHOLESTEROL 27 mg/dL
== END 2019-04-07 07:31 | disposition home or self-care (01) ==
LOC: LAB.WCP 07:30
PROVIDERS: ATTEND Internal Medicine Cardiovascular Disease
DX: I25.10 Atherosclerotic heart disease of native coronary artery without angina pectoris (principal)
CPT/HCPCS: 36415; 80053; 80061; 83721

== ENCOUNTER 2020-05-09 08:00 | Outpatient (CLI) | payer OTHER ==
[2020-05-09 12:04] LABS: ALBUMIN 4.1 g/dL (3.2-5.5); ALBUMIN/GLOBULIN RATIO 1.4 (1.0-2.2); ALKALINE PHOSPHATASE 45 IU/L (42-121); ALT ALANINE AMINOTRANSFERASE 37 IU/L (10-60); AST ASPARTATE AMINOTRANSFERASE 37 IU/L (10-42); BILIRUBIN,TOTAL 0.7 mg/dL (0.2-1.0); BUN - BLOOD UREA NITROGEN 21 mg/dL (6-20); CALCIUM 9.8 mg/dL (8.5-10.3); CARBON DIOXIDE - CO2 25 mmol/L (21-32); CHLORIDE 105 mmol/L (101-111); CHOL/HDL RATIO 4.2 (<5.0); CHOLESTEROL 163 mg/dL; CREATININE 1.2 mg/dL (0.6-1.2); GLUCOSE 166 mg/dL (70-100); HDL CHOLESTEROL 39 mg/dL; LDL CHOLESTEROL,CALCULATED 91 mg/dL; LDL/HDL RATIO 2.3 (<3.6); SODIUM 141 mmol/L (135-145); VLDL CHOLESTEROL 33 mg/dL
[2020-05-09 12:25] LABS: HEMOGLOBIN A1c% 6.8 % (4.27-6.07)
== END 2020-05-09 23:59 | disposition home or self-care (01) ==
LOC: LAB.WCP 08:00
PROVIDERS: ATTEND Internal Medicine Cardiovascular Disease
DX: E74.39 Other disorders of intestinal carbohydrate absorption (principal); I25.10 Atherosclerotic heart disease of native coronary artery without angina pectoris
CPT/HCPCS: 36415; 80053; 80061; 83036; 83721

== ENCOUNTER 2021-03-11 07:20 | Outpatient (CLI) | payer OTHER ==
[2021-03-11 13:33] LABS: BASOPHILS # (AUTO) 0.1 10^3/uL (0.0-0.1); BASOPHILS % (AUTO) 0.8 %; EOSINOPHILS # (AUTO) 0.2 10^3/uL (0.0-0.7); EOSINOPHILS % (AUTO) 2.4 %; HCT - HEMATOCRIT 44.4 % (42.0-52.0); HGB - HEMOGLOBIN 14.3 g/dL (14.0-18.0); LYMPHOCYTES # (AUTO) 2.1 10^3/uL (1.5-3.5); LYMPHOCYTES % (AUTO) 34.1 %; MEAN CORPUSCULAR HEMOGLOBIN 29.2 pg (27.0-31.0); MEAN CORPUSCULAR HGB CONC 32.2 g/dL (32.0-36.0); MEAN CORPUSCULAR VOLUME 90.8 fL (80.0-94.0); MONOCYTES # (AUTO) 0.4 10^3/uL (0.0-1.0); MONOCYTES % (AUTO) 6.2 %; NEUTROPHILS # (AUTO) 3.5 10^3/uL (1.5-6.6); NEUTROPHILS % (AUTO) 56.2 %; RED BLOOD COUNT 4.89 10^6/uL (4.70-6.10); RED CELL DISTRIBUTION WIDTH 13.8 % (12.0-15.0); WHITE BLOOD COUNT 6.3 x10^3/uL (4.8-10.8)
[2021-03-11 13:43] LABS: CREATININE,URINE 257.8 mg/dL; MICROALBUM/CREATININE RATIO,UR 2.7 ug/mg (<30.0); MICROALBUMIN,URINE 0.7 mg/dL (0-300.0)
[2021-03-11 13:45] LABS: ALBUMIN 4.3 g/dL (3.2-5.5); ALBUMIN/GLOBULIN RATIO 1.7 (1.0-2.2); ALKALINE PHOSPHATASE 45 IU/L (42-121); ALT ALANINE AMINOTRANSFERASE 33 IU/L (10-60); AST ASPARTATE AMINOTRANSFERASE 31 IU/L (10-42); BUN - BLOOD UREA NITROGEN 22 mg/dL (6-20); CALCIUM 9.5 mg/dL (8.5-10.3); CARBON DIOXIDE - CO2 25 mmol/L (21-32); CHLORIDE 104 mmol/L (101-111); CHOL/HDL RATIO 8.6 (<5.0); CHOLESTEROL 311 mg/dL; CREATININE 1.2 mg/dL (0.6-1.2); GFR - MDRD 62 (>89); GLUCOSE 162 mg/dL (70-100); HDL CHOLESTEROL 36 mg/dL; POTASSIUM 3.5 mmol/L (3.5-5.0); SODIUM 139 mmol/L (135-145); TOTAL PROTEIN 6.9 g/dL (6.7-8.2); TRIGLYCERIDES 499 mg/dL
[2021-03-11 13:55] LABS: SLIDE REVIEW? Indicated
[2021-03-11 13:56] LABS: PLATELET ESTIMATE, MANUAL NORMAL (130-450,000) (NORMAL); PLATELET MORPHOLOGY PLATELET CLUMPING (NORMAL); RBC MORPHOLOGY (MULTIPLE) NORMAL APPEARANCE (NORMAL); WBC MORPHOLOGY (MULTIPLE) NORMAL APPEARANCE (NORMAL)
[2021-03-11 14:06] LABS: ESTIMATED AVERAGE GLUCOSE 148 mg/dL (70-100); HEMOGLOBIN A1c% 6.8 % (4.27-6.07)
[2021-03-11 15:40] LABS: LDL CHOLESTEROL,DIRECT 139 mg/dL; LDLD/HDL RATIO 3.9 (<3.6)
== END 2021-03-11 23:59 | disposition home or self-care (01) ==
LOC: LAB.WCP 07:20
PROVIDERS: ATTEND Physician Assistant Medical
DX: I25.10 Atherosclerotic heart disease of native coronary artery without angina pectoris (principal); E11.9 Type 2 diabetes mellitus without complications; D64.9 Anemia, unspecified
CPT/HCPCS: 36415; 80053; 80061; 82043; 82570; 83036; 83721; 85025

== ENCOUNTER 2021-05-09 08:00 | Outpatient (CLI) | payer OTHER ==
[2021-05-09 13:32] LABS: CHOL/HDL RATIO 5.4 (<5.0); CHOLESTEROL 193 mg/dL; HDL CHOLESTEROL 36 mg/dL; LDL CHOLESTEROL,CALCULATED 106 mg/dL; LDL/HDL RATIO 2.9 (<3.6); TRIGLYCERIDES 254 mg/dL; VLDL CHOLESTEROL 51 mg/dL
== END 2021-05-09 23:59 | disposition home or self-care (01) ==
LOC: LAB.WCP 08:00
PROVIDERS: ATTEND Physician Assistant
DX: E78.1 Pure hyperglyceridemia (principal); E78.2 Mixed hyperlipidemia
CPT/HCPCS: 36415; 80061; 83721

== ENCOUNTER 2021-06-13 07:29 | Outpatient (CLI) | payer OTHER ==
[2021-06-13 12:08] LABS: BASOPHILS # (AUTO) 0.1 10^3/uL (0.0-0.1); BASOPHILS % (AUTO) 1.2 %; EOSINOPHILS # (AUTO) 0.2 10^3/uL (0.0-0.7); EOSINOPHILS % (AUTO) 2.7 %; HCT - HEMATOCRIT 41.6 % (42.0-52.0); HGB - HEMOGLOBIN 13.7 g/dL (14.0-18.0); LYMPHOCYTES # (AUTO) 2.3 10^3/uL (1.5-3.5); LYMPHOCYTES % (AUTO) 38.8 %; MEAN CORPUSCULAR HEMOGLOBIN 29.2 pg (27.0-31.0); MEAN CORPUSCULAR HGB CONC 32.9 g/dL (32.0-36.0); MEAN CORPUSCULAR VOLUME 88.7 fL (80.0-94.0); MEAN PLATELET VOLUME 10.1 fL (7.4-11.4); MONOCYTES # (AUTO) 0.4 10^3/uL (0.0-1.0); NEUTROPHILS # (AUTO) 2.9 10^3/uL (1.5-6.6); PLT - PLATELET COUNT 233 10^3/uL (130-450); RED BLOOD COUNT 4.69 10^6/uL (4.70-6.10); RED CELL DISTRIBUTION WIDTH 13.4 % (12.0-15.0); WHITE BLOOD COUNT 5.9 x10^3/uL (4.8-10.8)
[2021-06-13 12:39] LABS: MICROALBUM/CREATININE RATIO,UR 2.1 ug/mg (<30.0); MICROALBUMIN,URINE 0.4 mg/dL (0-300.0)
[2021-06-13 12:40] LABS: ALBUMIN 4.2 g/dL (3.2-5.5); ALBUMIN/GLOBULIN RATIO 1.5 (1.0-2.2); ALKALINE PHOSPHATASE 36 IU/L (42-121); ALT ALANINE AMINOTRANSFERASE 45 IU/L (10-60); AST ASPARTATE AMINOTRANSFERASE 35 IU/L (10-42); BUN - BLOOD UREA NITROGEN 17 mg/dL (6-20); CALCIUM 9.4 mg/dL (8.5-10.3); CARBON DIOXIDE - CO2 25 mmol/L (21-32); CHLORIDE 103 mmol/L (101-111); CHOL/HDL RATIO 3.9 (<5.0); CHOLESTEROL 142 mg/dL; CREATININE 1.2 mg/dL (0.6-1.2); GFR - MDRD 62 (>89); GLUCOSE 157 mg/dL (70-100); HDL CHOLESTEROL 36 mg/dL; LDL CHOLESTEROL,CALCULATED 71 mg/dL; POTASSIUM 3.5 mmol/L (3.5-5.0); SODIUM 137 mmol/L (135-145); TRIGLYCERIDES 175 mg/dL; VLDL CHOLESTEROL 35 mg/dL
[2021-06-13 12:45] LABS: ESTIMATED AVERAGE GLUCOSE 160 mg/dL (70-100); HEMOGLOBIN A1c% 7.2 % (4.27-6.07)
== END 2021-06-13 23:59 | disposition home or self-care (01) ==
LOC: LAB.WCP 07:29
PROVIDERS: ATTEND Physician Assistant Medical
DX: E11.9 Type 2 diabetes mellitus without complications (principal); R41.3 Other amnesia; D64.9 Anemia, unspecified; E78.1 Pure hyperglyceridemia
CPT/HCPCS: 36415; 80053; 80061; 82043; 82570; 82607; 82746; 82747; 83036; 83721; 84153; 85025

== ENCOUNTER 2021-06-25 08:00 | Outpatient (CLI) | payer OTHER | END 2021-06-25 23:59 | LOC: LAB.WCP 08:00 | PROVIDERS: ATTEND Physician Assistant Medical | DX: J06.9 Acute upper respiratory infection, unspecified (principal); Z20.822 Contact with and (suspected) exposure to COVID-19 ==

== ENCOUNTER 2022-04-13 08:46 | Outpatient (CLI) | payer OTHER ==
[2022-04-13 12:59] LABS: CALCIUM 10.5 mg/dL (8.5-10.3); CREATININE 1.2 mg/dL (0.6-1.2); POTASSIUM 3.9 mmol/L (3.5-5.0)
[2022-04-13 13:03] LABS: ESTIMATED AVERAGE GLUCOSE 214 mg/dL (70-100); HEMOGLOBIN A1c% 9.1 % (4.27-6.07)
== END 2022-04-13 08:47 | disposition home or self-care (01) ==
LOC: LAB.N 08:46
PROVIDERS: ATTEND Physician Assistant Medical
DX: E11.9 Type 2 diabetes mellitus without complications (principal)
CPT/HCPCS: 36415; 80048; 83036

== ENCOUNTER 2022-08-04 07:31 | Outpatient (CLI) | payer OTHER ==
[2022-08-04 11:40] LABS: BASOPHILS # (AUTO) 0.1 10^3/uL (0.0-0.1); BASOPHILS % (AUTO) 0.7 %; EOSINOPHILS # (AUTO) 0.2 10^3/uL (0.0-0.7); EOSINOPHILS % (AUTO) 1.8 %; HCT - HEMATOCRIT 41.4 % (42.0-52.0); HGB - HEMOGLOBIN 13.4 g/dL (14.0-18.0); LYMPHOCYTES # (AUTO) 2.5 10^3/uL (1.5-3.5); LYMPHOCYTES % (AUTO) 29.2 %; MEAN CORPUSCULAR HEMOGLOBIN 27.7 pg (27.0-31.0); MEAN CORPUSCULAR HGB CONC 32.4 g/dL (32.0-36.0); MEAN CORPUSCULAR VOLUME 85.5 fL (80.0-94.0); MEAN PLATELET VOLUME 9.3 fL (7.4-11.4); MONOCYTES # (AUTO) 0.6 10^3/uL (0.0-1.0); MONOCYTES % (AUTO) 7.2 %; NEUTROPHILS % (AUTO) 59.6 %; PLT - PLATELET COUNT 405 10^3/uL (130-450); RED BLOOD COUNT 4.84 10^6/uL (4.70-6.10); RED CELL DISTRIBUTION WIDTH 12.6 % (12.0-15.0); WHITE BLOOD COUNT 8.4 x10^3/uL (4.8-10.8)
[2022-08-04 12:02] LABS: CREATININE,URINE 146.1 mg/dL; MICROALBUM/CREATININE RATIO,UR 3.4 ug/mg (<30.0); MICROALBUMIN,URINE 0.5 mg/dL (0-300.0)
[2022-08-04 12:18] LABS: ALBUMIN 3.8 g/dL (3.2-5.5); ALKALINE PHOSPHATASE 69 IU/L (42-121); ALT ALANINE AMINOTRANSFERASE 52 IU/L (10-60); AST ASPARTATE AMINOTRANSFERASE 30 IU/L (10-42); BILIRUBIN,TOTAL 0.5 mg/dL (0.2-1.0); BUN - BLOOD UREA NITROGEN 22 mg/dL (6-20); CALCIUM 9.8 mg/dL (8.5-10.3); CARBON DIOXIDE - CO2 26 mmol/L (21-32); CHLORIDE 97 mmol/L (101-111); CHOL/HDL RATIO 5.1 (<5.0); CHOLESTEROL 123 mg/dL; CREATININE 1.3 mg/dL (0.6-1.2); GFR - MDRD 57 (>89); GLUCOSE 365 mg/dL (70-100); HDL CHOLESTEROL 24 mg/dL; LDL CHOLESTEROL,CALCULATED 54 mg/dL; LDL/HDL RATIO 2.3 (<3.6); SODIUM 134 mmol/L (135-145); THYROID STIMULATING HORMONE 1.52 uIU/mL (0.34-5.60); TOTAL PROTEIN 7.7 g/dL (6.7-8.2); TRIGLYCERIDES 227 mg/dL; VLDL CHOLESTEROL 45 mg/dL
[2022-08-04 12:24] LABS: ESTIMATED AVERAGE GLUCOSE 303 mg/dL (70-100); HEMOGLOBIN A1c% 12.2 % (4.27-6.07)
== END 2022-08-04 07:32 | disposition home or self-care (01) ==
LOC: LAB.N 07:31
PROVIDERS: ATTEND Physician Assistant Medical
DX: Z00.00 Encounter for general adult medical examination without abnormal findings (principal); E11.9 Type 2 diabetes mellitus without complications; I25.10 Atherosclerotic heart disease of native coronary artery without angina pectoris; R19.4 Change in bowel habit; N40.0 Benign prostatic hyperplasia without lower urinary tract symptoms
CPT/HCPCS: 36415; 80053; 80061; 82043; 82570; 83036; 83721; 84153; 84443; 85025

== ENCOUNTER 2023-03-01 07:13 | Outpatient (CLI) | payer OTHER ==
[2023-03-01 13:15] LABS: CREATININE 1.1 mg/dL (0.6-1.3); POTASSIUM 3.6 mmol/L (3.5-4.5)
[2023-03-01 13:23] LABS: ESTIMATED AVERAGE GLUCOSE 212 mg/dL (70-100)
== END 2023-03-01 07:14 | disposition home or self-care (01) ==
LOC: LAB.N 07:13
PROVIDERS: ATTEND Physician Assistant Medical
DX: E11.9 Type 2 diabetes mellitus without complications (principal)
CPT/HCPCS: 36415; 80048; 83036

== ENCOUNTER 2023-05-04 17:31 | Emergency (ER) | payer OTHER ==
--- NOTE | 2023-05-04 18:38 | ED Physician Documentation ---
History of Present Illness - Stated complaint Stated Complaint: LT FINGER LAC - Chief complaint Chief Complaint: Laceration - History obtained from History obtained from: Patient - History of Present Illness Timing: Today - Additonal information Additional information: 62-year-old male presents to the emergency department for laceration to left index finger and left Middle finger. This was from a table saw today. Unable to stop the bleeding at home. Tetanus up-to-date. Not on blood thinners. No numbness or tingling. Review of Systems Constitutional: denies: Fever, Chills Throat: denies: Sore throat GI: denies: Vomiting, Diarrhea Skin: denies: Rash PD PAST MEDICAL HISTORY - Past Medical History Cardiovascular: Hypertension, High cholesterol, Coronary artery disease Respiratory: None Endocrine/Autoimmune: Type 2 diabetes GI: None : None HEENT: None Psych: None, Other Musculoskeletal: None Derm: None - Past Surgical History Past Surgical History: Yes General: Other Cardiovascular: Coronary stent - Present Medications Home Medications: Ambulatory Orders Medication Instructions Recorded Confirmed Amlodipine Besylate [Norvasc] 2.5 mg PO DAILY 12/26/17 Aspirin [Aspirin EC] 81 mg PO DAILY 12/26/17 Atorvastatin Calcium 80 mg PO DAILY 12/26/17 Duloxetine HCl 60 mg PO DAILY 12/26/17 Losartan [Cozaar] 100 mg PO DAILY 12/26/17 Metoprolol Succinate 100 mg PO DAILY 12/26/17 Prasugrel HCl [Effient] 10 mg PO DAILY 12/26/17 cephALEXin [Keflex] 500 mg PO Q6H #28 cap 05/04/23 - Allergies Allergies/Adverse Reactions: Allergies Allergy/AdvReac Type Severity Reaction Status Date / Time No Known Drug Allergies Allergy Verified 12/27/17 17:43 - Social History Does the pt smoke?: No Smoking Status: Never smoker Does the pt drink ETOH?: Yes Does the pt have substance abuse?: No - Immunizations Immunizations are current?: Yes - POLST Patient has POLST: No PD ED PE NORMAL - Vitals Vital signs reviewed: Yes - General General: Alert and oriented X 3, No acute distress - Derm Derm: Warm and dry - Extremities Extremities: Other (L hand - skin avulsion to the tips of the index and middle fingers. NVI. No bony protrusion. No tendon injury.) - Neuro Neuro: Alert and oriented X 3 - Psych Psych: Normal mood, Normal affect Results - Vitals Vitals: Vital Signs - 24 hr 05/04/23 05/04/23 17:57 20:24 Temperature 36.5 C 36.6 C Heart Rate 85 68 Respiratory 18 16 Rate Blood Pressure 153/82 H 138/94 H O2 Saturation 95 97 Oxygen O2 Source Room air PD Medical Decision Making - ED course Complexity details: considered differential, d/w patient ED course: Patient with a skin avulsion from the left index and second digit, tip of the finger. There is no laceration to sew, the tissue is missing. Therefore bleeding was controlled. The wounds were covered with Dermabond. Patient's placed in a dressing. Tetanus shot up-to-date. Will prescribe Keflex. Warnings of infection and instructions on wound care given at bedside. Patient counseled regarding signs and symptoms for which I believe and urgent re- evaluation would be necessary. Patient with good understanding of and agreement to plan and is comfortable going home at this time This document was made in part using voice recognition software. While efforts are made to proofread this document, sound alike and grammatical errors may occur. Departure - Departure Disposition: 01 Home, Self Care Clinical Impression: Avulsion, skin Condition: Good Instructions: ED Avulsion Dermal Follow-Up: Terra Morse PA-C [Primary Care Provider] - Within 1 week Prescriptions: cephALEXin [Keflex] 500 mg PO Q6H #28 cap Comments: Your prescription was sent to [facility] in [place]. Your wounds will heal by what we call secondary intention or scarring in. Recommend that you follow-up with your doctor for a wound check in approximately 5 to 7 days. Please take all antibiotics until gone. Return if you notice redness, swelling or drainage from the wound. There is no evidence of bony involvement on x-ray today. You can use Motrin or Tylenol as needed for pain. Forms: PCP List Discharge Date/Time: 05/04/23 20:25
--- NOTE | 2023-05-04 19:03 | XRAY Report ---
PROCEDURE: Hand 3 View LT INDICATIONS: table saw vs hand TECHNIQUE: 3 views of the hand(s) acquired. COMPARISON: None. FINDINGS: Bones: No fractures or dislocations. No suspicious bony lesions. Scattered arthritic changes thro ughout the interphalangeal joints. Soft tissues: Soft tissue defect at the tip of the third digit. No radiodense foreign bodies in the tissue. IMPRESSION: Soft tissue defect at the third digit tip without underlying fracture or foreign body. Reviewed by: Enedelia Barcenas MD on 05/04/2023 7:02 PM PDT Approved by: Enedelia Barcenas MD on 05/04/2023 7:02 PM PDT Station ID: [id number]
[2023-05-04] MEDS ORDERED: cephALEXin 250 MG CAPSULE PO STA (19:52)
[2023-05-04 20:26] VITALS: BP 138/94; O2SAT 97
== END 2023-05-04 20:25 | disposition home or self-care (01) ==
LOC: ED 17:31
DX: S61.201A Unspecified open wound of left index finger without damage to nail, initial encounter (principal); S61.203A Unspecified open wound of left middle finger without damage to nail, initial encounter; W27.0XXA Contact with workbench tool, initial encounter; Y93.89 Activity, other specified; Y92.009 Unspecified place in unspecified non-institutional (private) residence as the place of occurrence of the external cause
CPT/HCPCS: 73130; 99283; A9270

== ENCOUNTER 2023-11-29 07:46 | Outpatient (CLI) | payer OTHER ==
[2023-11-29 12:38] LABS: ALBUMIN 4.3 g/dL (3.2-5.5); ALBUMIN/GLOBULIN RATIO 1.5 (1.0-2.2); ALKALINE PHOSPHATASE 48 IU/L (42-121); ALT ALANINE AMINOTRANSFERASE 33 IU/L (10-60); AST ASPARTATE AMINOTRANSFERASE 25 IU/L (10-42); BILIRUBIN,TOTAL 0.6 mg/dL (0.2-1.0); BUN - BLOOD UREA NITROGEN 16 mg/dL (6-20); CALCIUM 10.3 mg/dL (8.5-10.3); CARBON DIOXIDE - CO2 29 mmol/L (21-32); CHLORIDE 104 mmol/L (101-111); CHOL/HDL RATIO 4.9 (<5.0); CHOLESTEROL 205 mg/dL; CREATININE 1.1 mg/dL (0.6-1.3); GFR - MDRD 68 (>89); GLUCOSE 174 mg/dL (74-104); HDL CHOLESTEROL 42 mg/dL; LDL CHOLESTEROL,CALCULATED 103 mg/dL; LDL/HDL RATIO 2.5 (<3.6); POTASSIUM 3.8 mmol/L (3.5-4.5); SODIUM 139 mmol/L (135-145); TOTAL PROTEIN 7.2 g/dL (6.4-8.9); TRIGLYCERIDES 298 mg/dL (48-352); VLDL CHOLESTEROL 60 mg/dL
[2023-11-29 12:39] LABS: ESTIMATED AVERAGE GLUCOSE 183 mg/dL (70-100)
== END 2023-11-29 07:47 | disposition home or self-care (01) ==
LOC: LAB.N 07:46
PROVIDERS: ATTEND Physician Assistant Medical
DX: E11.9 Type 2 diabetes mellitus without complications (principal)
CPT/HCPCS: 36415; 80053; 80061; 83036; 83721

== ENCOUNTER 2024-02-09 09:13 | Outpatient (CLI) | payer OTHER ==
[2024-02-09 12:51] LABS: CHOL/HDL RATIO 4.6 (<5.0); CHOLESTEROL 185 mg/dL; HDL CHOLESTEROL 40 mg/dL; LDL CHOLESTEROL,CALCULATED 82 mg/dL; LDL/HDL RATIO 2.1 (<3.6); TRIGLYCERIDES 315 mg/dL; VLDL CHOLESTEROL 63 mg/dL
== END 2024-02-09 09:14 | disposition home or self-care (01) ==
LOC: LAB.N 09:13
PROVIDERS: ATTEND Internal Medicine Cardiovascular Disease
DX: I25.10 Atherosclerotic heart disease of native coronary artery without angina pectoris (principal); E78.2 Mixed hyperlipidemia
CPT/HCPCS: 36415; 80061; 83721

== ENCOUNTER 2024-03-07 09:48 | Outpatient (CLI) | payer OTHER ==
[2024-03-07 12:10] LABS: ALBUMIN 4.5 g/dL (3.2-5.5); BILIRUBIN,TOTAL 0.7 mg/dL (0.2-1.0); CALCIUM 9.9 mg/dL (8.5-10.3); CARBON DIOXIDE - CO2 26 mmol/L (21-32); CHLORIDE 99 mmol/L (101-111); POTASSIUM 3.7 mmol/L (3.5-4.5); SODIUM 134 mmol/L (135-145)
[2024-03-07 12:16] LABS: ALBUMIN/GLOBULIN RATIO 1.4 (1.0-2.2); ALKALINE PHOSPHATASE 41 IU/L (42-121); ALT ALANINE AMINOTRANSFERASE 33 IU/L (10-60); AST ASPARTATE AMINOTRANSFERASE 30 IU/L (10-42); BUN - BLOOD UREA NITROGEN 23 mg/dL (6-20); CHOL/HDL RATIO 10.2 (<5.0); CHOLESTEROL 420 mg/dL; CREATININE 1.1 mg/dL (0.6-1.3); GFR - MDRD 68 (>89); GLUCOSE 201 mg/dL (74-104); HDL CHOLESTEROL 41 mg/dL; TOTAL PROTEIN 7.7 g/dL (6.4-8.9)
[2024-03-07 12:36] LABS: ESTIMATED AVERAGE GLUCOSE 177 mg/dL (70-100); HEMOGLOBIN A1c% 7.8 % (4.27-6.07)
[2024-03-07 13:17] LABS: TRIGLYCERIDES 1302 mg/dL
[2024-03-07 13:31] LABS: LDL CHOLESTEROL,DIRECT 124 mg/dL (75-193)
== END 2024-03-07 09:49 | disposition home or self-care (01) ==
LOC: LAB.N 09:48
PROVIDERS: ATTEND Physician Assistant Medical
DX: E11.9 Type 2 diabetes mellitus without complications (principal)
CPT/HCPCS: 36415; 80053; 80061; 83036; 83721